=== PATIENT | male | born 1965 | race Caucasian/White ===

== ENCOUNTER 2019-04-26 03:20 | Observation (INO) | payer BC ==
[2019-04-26 03:58] LABS: ANION GAP 13.3; CHLORIDE,CL 104 mmol/L (101-111); SODIUM,NA 138 mmol/L (135-145)
--- NOTE | 2019-04-26 04:19 | EDM.PDOC ---
ED HPI GENERAL MEDICAL PROBLEM - General Chief Complaint: Cardiovascular Problem Stated Complaint: HEARTBEAT FEELS LIKE ITS SKIPPING Time Seen by Provider: 04/26/19 03:20 Source of Information: Reports: Patient, RN Notes Reviewed History Limitations: Reports: No Limitations - History of Present Illness INITIAL COMMENTS - FREE TEXT/NARRATIVE: ED with c/o feeling like heart skipping. States, woke felt "funny" felt pulse and irregular. No hx of similar events. Denies chest pain or SOB. Recent cold sx with congestion, Muccinex taken yesterday. non smoker. - Related Data Allergies Allergy/AdvReac Type Severity Reaction Status Date / Time No Known Allergies Allergy Verified 04/26/19 03:23 Home Meds: Home Meds . [No Known Home Meds] 04/26/19 [History] Past Medical History Cardiovascular History: Reports: High Cholesterol Social & Family History - Tobacco Use Smoking Status *Q: Never Smoker Second Hand Smoke Exposure: No - Recreational Drug Use Recreational Drug Use: No ED ROS GENERAL - Review of Systems Review Of Systems: Comprehensive ROS is negative, except as noted in HPI. ED EXAM, GENERAL - Physical Exam Exam: See Below Exam Limited By: No Limitations General Appearance: Alert, No Apparent Distress Eye Exam: Bilateral Eye: EOMI Ears: Normal External Exam, Hearing Grossly Normal Nose: Normal Inspection Throat/Mouth: Normal Inspection Head: Atraumatic, Normocephalic Neck: Normal Inspection, Full Range of Motion Respiratory/Chest: No Respiratory Distress, Lungs Clear, Normal Breath Sounds, No Accessory Muscle Use Cardiovascular: Normal Peripheral Pulses, Regular Rate, Rhythm, No Rub. No: JVD GI/Abdominal: Normal Bowel Sounds, Soft Back Exam: Full Range of Motion Extremities: Normal Inspection, Normal Range of Motion Neurological: Alert, Oriented, Normal Cognition Psychiatric: Normal Affect, Normal Mood Skin Exam: Warm, Dry, Intact, Normal Color Course - Vital Signs Last Recorded V/S: Last Vital Signs Temp 98.4 F 04/26/19 03:20 Pulse 72 04/26/19 03:20 Resp 18 04/26/19 03:20 BP 157/80 H 04/26/19 03:20 Pulse Ox 100 04/26/19 03:20 - Orders/Labs/Meds Orders: Active Orders 24 hr Category Date Time Status Admission Diagnosis [ADT] Stat ADT 04/26/19 05:08 Ordered Admission Status [Patient Status] [ADT] Routine ADT 04/26/19 05:08 Ordered Cardiac Monitoring [RC] . DIRECTED Care 04/26/19 05:08 Ordered EKG 12 Lead [EKG Documentation Completion] [RC] URGENT Care 04/26/19 03:28 Active Telemetry Monitoring [Cardiac Monitoring] [RC] . Care 04/26/19 05:11 Ordered DIRECTED Chest 1V Frontal [CR] Urgent Exams 04/26/19 03:33 Taken TROPONIN I [CHEM] Stat Lab 04/26/19 09:15 Ordered Labs: Laboratory Tests 04/26/19 04/26/19 Range/Units 03:35 03:35 WBC 9.7 (5.0-10.0) 10^3/uL RBC 4.44 L (4.6-6.2) 10^6/uL Hgb 13.3 L (14.0-18.0) g/dL Hct 38.8 L (40.0-54.0) % MCV 87.4 (80-100) fL MCH 30.0 (27.0-34.0) pg MCHC 34.3 (33.0-35.0) g/dL Plt Count 212 (150-450) 10^3/uL Neut % (Auto) 57.0 (42.2-75.2) % Lymph % (Auto) 31.6 (20.5-50.1) % [place] % (Auto) 9.2 H (2-8) % Eos % (Auto) 1.7 (1.0-3.0) % Baso % (Auto) 0.5 (0.0-1.0) % Sodium 138 (135-145) mmol/L Potassium 3.3 L (3.6-5.0) mmol/L Chloride 104 (101-111) mmol/L Carbon Dioxide 24.0 (21.0-31.0) mmol/L Anion Gap 13.3 BUN 17 (7-18) mg/dL Creatinine 0.8 (0.6-1.3) mg/dL Est Cr Clr Drug Dosing 115.04 mL/min Estimated GFR (MDRD) > 60 BUN/Creatinine Ratio 21.25 Glucose 95 (74-105) mg/dL Calcium 9.3 (8.4-10.2) mg/dl Total Bilirubin 0.6 (0.2-1.0) mg/dL AST 21 (10-42) IU/L ALT 19 (10-60) IU/L Alkaline Phosphatase 57 (42-121) IU/L Troponin I 0.03 H* (0.00-0.02) ng/ml Total Protein 7.3 (6.7-8.2) g/dl Albumin 3.9 (3.2-5.5) g/dl Globulin 3.4 Albumin/Globulin Ratio 1.15 Meds: Medications Discontinued Medications Generic Name Dose Route Start Last Admin Trade Name Freq PRN Reason Stop Dose Admin Potassium Chloride 20 meq 04/26/19 04:31 04/26/19 04:38 Klor-Con 10 PO 04/26/19 04:32 20 meq ONETIME ONE Administration - Radiology Interpretation Free Text/Narrative:: [facility] Final Radiology Report Call: [phone] assistance Online chat: [email or web address] Name: NEHEMIAS ACEVEDO Age: 53Years M Date: 04/26/2019 SSN: -- : [id number] Study: XR CHEST 1 VIEW FRONTAL Requesting Physician: ELIZABETH BALLESTEROS Images: 1 Addl Studies: Provided Clinical History: Contrast: Contrast Medium: Contrast Amount: Contrast Method: CONFIDENTIALITY STATEMENT This report is intended only for use by the referring physician, and only in accordance with law. If you received this in error, call [phone]. Page 1 of 1 PROCEDURE INFORMATION: Exam: XR Chest, 1 View Exam date and time: 04/26/2019 3:46 AM Age: 53 years old Clinical indication: Other: Feels like heart skipping beat TECHNIQUE: Imaging protocol: XR of the chest Views: 1 view. COMPARISON: No relevant prior studies available. FINDINGS: Lungs: Unremarkable. No consolidation. Pleural space: Unremarkable. No pleural effusion. No pneumothorax. Heart/Mediastinum: Unremarkable. No cardiomegaly. Bones/joints: Unremarkable. IMPRESSION: No acute findings. Thank you for allowing us to participate in the care of your patient. Dictated and Authenticated by: Mark Flowers MD 04/26/2019 4:07 AM Central Time ([place] & [place]) - Re-Assessments/Exams Free Text/Narrative Re-Assessment/Exam: 04/26/19 05:15 Dr Keshawn LOONEY Hospitalist accepting patient for observation admission Departure - Departure Time of Disposition: 05:15 Disposition: Refer to Observation Condition: Good Clinical Impression: Palpitations, Elevated troponin Forms: ED Department Discharge Sepsis Event Note - Evaluation Sepsis Screening Result: No Definite Risk - Focused Exam Vital Signs: Vital Signs Temp Pulse Resp BP Pulse Ox 04/26/19 03:20 98.4 F 72 18 157/80 H 100 Date Exam was Performed: 04/26/19 Time Exam was Performed: 05:14 - My Orders Last 24 Hours: My Active Orders 04/26/19 03:28 EKG 12 Lead [EKG Documentation Completion] [RC] URGENT 04/26/19 03:33 Chest 1V Frontal [CR] Urgent 04/26/19 05:08 Admission Diagnosis [ADT] Stat Admission Status [Patient Status] [ADT] Routine Cardiac Monitoring [RC] . DIRECTED 04/26/19 05:11 Telemetry Monitoring [Cardiac Monitoring] [RC] . DIRECTED 04/26/19 09:15 TROPONIN I [CHEM] Stat - Assessment/Plan Last 24 Hours: My Active Orders 04/26/19 03:28 EKG 12 Lead [EKG Documentation Completion] [RC] URGENT 04/26/19 03:33 Chest 1V Frontal [CR] Urgent 04/26/19 05:08 Admission Diagnosis [ADT] Stat Admission Status [Patient Status] [ADT] Routine Cardiac Monitoring [RC] . DIRECTED 04/26/19 05:11 Telemetry Monitoring [Cardiac Monitoring] [RC] . DIRECTED 04/26/19 09:15 TROPONIN I [CHEM] Stat
[2019-04-26] MEDS ORDERED: Potassium Chloride 10 MEQ Tab.ER PO ONE (04:31)
[2019-04-26] MEDS ORDERED: Lisinopril 5 MG Tab PO ONE (06:15)
--- NOTE | 2019-04-26 06:34 | PCM.HP ---
H&P History of Present Illness - General Date of Service: 04/26/19 Admit Problem/Dx: Admission Diagnosis/Problem Admission Diagnosis/Problem Palpitations Source of Information: Patient, Family - History of Present Illness Initial Comments - Free Text/Narative: Mr. Wu is a 56 y.o male with medical history significant for hyperlipidemia not on any medications, pyelonephritis, and recurrent tonsillitis who presented to the ED with complaints of skipped heart beats that woke him up around 3am. Reports that he could feel his heart skipping a beat every once in a while. Denies any prior episodes. Denies any associated chest pain, shortness of breath , neck pain, jaw pain, shoulder pain, arm pain, paresthesias, fevers, chills, vision changes, LH, spinning sensation, tinnitus, n/v/d/c, dysuria, hematuria, or any other symptoms. States he came to the ED because he was worried about the skipped beats. He denies any prior episodes of skipped beats and denies any prior cardiac problems including murmurs. Reports that he has been getting over a cold that started last week with rhinorrhea and cough with clear sputum production. Onset of Symptoms: Reports: Today - Related Data Allergies/Adverse Reactions: Allergies Allergy/AdvReac Type Severity Reaction Status Date / Time No Known Allergies Allergy Verified 04/26/19 05:36 Home Medications: Home Meds . [No Known Home Meds] 04/26/19 [History] Past Medical History Cardiovascular History: Reports: High Cholesterol Social & Family History - Family History Family Medical History: Noncontributory - Tobacco Use Smoking Status *Q: Never Smoker Second Hand Smoke Exposure: No - Caffeine Use Caffeine Use: Reports: None - Alcohol Use Days Per Week of Alcohol Use: 0 - Recreational Drug Use Recreational Drug Use: No H&P Review of Systems - Review of Systems: Review Of Systems: Comprehensive ROS is negative, except as noted in HPI. Exam - Exam Exam: See Below - Vital Signs Vital Signs: Last Vital Signs Temp 98.6 F 04/26/19 05:35 Pulse 61 04/26/19 05:35 Resp 18 04/26/19 05:35 BP 154/87 H 04/26/19 06:24 Pulse Ox 99 04/26/19 06:04 Weight: 161 lb - Exam Physical Exam Comments:: General: Alert and oriented to place, time and person. cooperative Head: atraumatic and normocephalic. Eyes: PERRLA, anicteric, Ear, Nose and Throat: No gross abnormality found Neck: Supple Respiratory/Chest: CTAB, no wheezes, crackles, rales, or rhonci; Good air entry bilaterally. unlabored. CVS: III/ murmur; RRR. No rub or gallop. Peripheral pulses palpable. Gastrointestinal/Abd: Soft, non-distended, non-tender. Normal bowel sounds. No organomegaly. Skin: No acute rashes noted. Neuro: Grossly non-focal. Moves all extremities. Psych: Alert and oriented to place time and person. No hallucinations or delusions noted. Musculoskeletal: No abnormality noted. Ext: No edema, no ulcers, no tenderness, no size differences, - Patient Data Lab Results Last 24 hrs: Laboratory Results - last 24 hr 04/26/19 04/26/19 Range/Units 03:35 03:35 WBC 9.7 (5.0-10.0) 10^3/uL RBC 4.44 L (4.6-6.2) 10^6/uL Hgb 13.3 L (14.0-18.0) g/dL Hct 38.8 L (40.0-54.0) % MCV 87.4 (80-100) fL MCH 30.0 (27.0-34.0) pg MCHC 34.3 (33.0-35.0) g/dL Plt Count 212 (150-450) 10^3/uL Neut % (Auto) 57.0 (42.2-75.2) % Lymph % (Auto) 31.6 (20.5-50.1) % [place] % (Auto) 9.2 H (2-8) % Eos % (Auto) 1.7 (1.0-3.0) % Baso % (Auto) 0.5 (0.0-1.0) % Sodium 138 (135-145) mmol/L Potassium 3.3 L (3.6-5.0) mmol/L Chloride 104 (101-111) mmol/L Carbon Dioxide 24.0 (21.0-31.0) mmol/L Anion Gap 13.3 BUN 17 (7-18) mg/dL Creatinine 0.8 (0.6-1.3) mg/dL Est Cr Clr Drug Dosing 115.04 mL/min Estimated GFR (MDRD) > 60 BUN/Creatinine Ratio 21.25 Glucose 95 (74-105) mg/dL Calcium 9.3 (8.4-10.2) mg/dl Total Bilirubin 0.6 (0.2-1.0) mg/dL AST 21 (10-42) IU/L ALT 19 (10-60) IU/L Alkaline Phosphatase 57 (42-121) IU/L Troponin I 0.03 H* (0.00-0.02) ng/ml Total Protein 7.3 (6.7-8.2) g/dl Albumin 3.9 (3.2-5.5) g/dl Globulin 3.4 Albumin/Globulin Ratio 1.15 Result Diagrams: 04/26/19 03:35 04/26/19 03:35 EKG INTERPRETATION EKG Date: 04/26/19 Comparison: NA - No Prior EKG EKG Interpretation Comments: Sinus rhythm with right axis deviation. HR of 74. No ST elevation or depression. No wave inversion. RA enlargement. QTc of 435 - Problem List (1) Hypokalemia SNOMED Code(s): 01950535 ICD Code: E87.6 - HYPOKALEMIA Status: Acute Current Visit: Yes (2) Cardiac murmur SNOMED Code(s): 29158379 ICD Code: R01.1 - CARDIAC MURMUR, UNSPECIFIED Status: Acute Current Visit : Yes (3) Hyperlipidemia SNOMED Code(s): 86149350 ICD Code: E78.5 - HYPERLIPIDEMIA, UNSPECIFIED Status: Acute Current Visit : Yes (4) Skipped heart beats SNOMED Code(s): 856999000 ICD Code: I45.9 - CONDUCTION DISORDER, UNSPECIFIED Status: Acute Current Visit: Yes (5) Elevated troponin SNOMED Code(s): 889736470, 672832408, 132880437 ICD Code: R79.89 - OTHER SPECIFIED ABNORMAL FINDINGS OF BLOOD CHEMISTRY Status: Acute Current Visit: No Problem List Initiated/Reviewed/Updated: Yes Orders Last 24hrs: Active Orders 24 hr Category Date Time Status Admission Diagnosis [ADT] Stat ADT 04/26/19 05:08 Ordered Admission Status [Patient Status] [ADT] Routine ADT 04/26/19 05:08 Active EKG 12 Lead [EKG Documentation Completion] [RC] URGENT Care 04/26/19 03:28 Active Height and Weight [RC] UPON Care 04/26/19 06:04 Ordered Intake and Output [RC] QSHIFT Care 04/26/19 06:05 Ordered Notify Provider Vital Signs [RC] ASDIRECTED Care 04/26/19 06:05 Ordered Oxygen Therapy [RC] PRN Care 04/26/19 06:04 Ordered Telemetry Monitoring [Cardiac Monitoring] [RC] 08 Care 04/26/19 05:11 Active Up ad Anni [RC] ASDIRECTED Care 04/26/19 06:04 Ordered VTE/DVT Education [RC] PER UNIT ROUTINE Care 04/26/19 06:04 Ordered Vital Signs [RC] Q4H Care 04/26/19 06:04 Ordered NPO Now [Nothing per Oral Now Diet] [DIET] Diet 04/26/19 Breakfast Ordered Chest 1V Frontal [CR] Urgent Exams 04/26/19 03:33 Taken Echo Comp wo Cont [US] Urgent Exams 04/26/19 06:09 Ordered BASIC METABOLIC PANEL,BMP [CHEM] AM Lab 04/27/19 05:11 Ordered GLYCOSYLATED HEMOGLOBIN (HA1C) [REF] Routine Lab 04/26/19 06:09 Ordered LIPID PANEL [REF] Routine Lab 04/26/19 06:09 Ordered MAGNESIUM [CHEM] AM Lab 04/27/19 05:11 Ordered PHOSPHORUS [CHEM] AM Lab 04/27/19 05:11 Ordered TROPONIN I [CHEM] Q6H Lab 04/26/19 09:30 Ordered TROPONIN I [CHEM] Q6H Lab 04/26/19 15:30 Ordered Aspirin Med 04/26/19 08:00 Ordered 81 mg PO WITHBREAKFAST atorvaSTATin [Lipitor] Med 04/26/19 21:00 Ordered 20 mg PO BEDTIME lisinopriL [Prinivil] Med 04/26/19 06:15 Ordered 5 mg PO DAILY Resuscitation Status Routine Resus Stat 04/26/19 06:04 Ordered Medication Orders Aspirin (Aspirin) 81 mg PO WITHBREAKFAST RENARD Atorvastatin Calcium (Lipitor) 20 mg PO BEDTIME RENARD Lisinopril (Prinivil) 5 mg PO DAILY [facility] Assessment/Plan Comment:: #Skipped heart beats: patient reports skipped heart beats. EKG shows no arrhythmias. Denies palpitations, racing heart beats, chest pain/pressure, jaw pain, neck pain, arm pain, paresthesia, LH, diaphoresis, n/v, or shortness of breath. - Tele monitoring. #Elevated troponin: Patient with troponin of 0.03. Could be due to cardiac strain or false positive from highly sensitive troponin. Only cardiac complaints is "skipped heart beats." He does have significant risk factors to include hyperlipidemia, male gender, and age of 53. - Tele monitoring. - Trend troponin and EKG - Check lipid panel and Hb A1c - Start ASA and lipitor - Echo - Will hold off on heparin drip for now. #New cardiac murmur: patient is 3/6 systolic murmur. - Echo #Hyperlipidemia: Patient with total cholesterol of 300 in 2016. - Not on any medication. - Start lipitor - Check lipid panel. Code status: Full GI ppx: NPO for now.
[2019-04-26] MEDS ORDERED: Aspirin 81 MG Tab.Chew PO SCH (08:00)
[2019-04-26] MEDS ORDERED: Heparin Sodium 5,000 Units/ML Vial IVPUSH ONE (10:57)
--- NOTE | 2019-04-26 10:57 | PCM.DCSUM1 ---
Discharge Summary - Hospital Course Free Text/Narrative:: Mr. Wu is a 56 y.o male with medical history significant for hyperlipidemia not on any medications, pyelonephritis, and recurrent tonsillitis who presented to the ED with complaints of skipped heart beats that woke him up around 3am. Reported that he could feel his heart skipping a beat every once in a while. Denied any prior episodes. Denied any associated chest pain, shortness of breath , neck pain, jaw pain, shoulder pain, arm pain, paresthesias, fevers, chills, vision changes, LH, spinning sensation, tinnitus, n/v/d/c, dysuria, hematuria, or any other symptoms. Troponin in the ED was 0.[address] elevation or depression. BP was elevated at 154/87. He was admitted for ACS rule out. His repeat troponin was 0.05. He was started on heparin drip and is being transferred to [facility], Dr. Vora is accepting physician. HPI Initial Comments: Mr. Wu is a 56 y.o male with medical history significant for hyperlipidemia not on any medications, pyelonephritis, and recurrent tonsillitis who presented to the ED with complaints of skipped heart beats that woke him up around 3am. Reports that he could feel his heart skipping a beat every once in a while. Denies any prior episodes. Denies any associated chest pain, shortness of breath , neck pain, jaw pain, shoulder pain, arm pain, paresthesias, fevers, chills, vision changes, LH, spinning sensation, tinnitus, n/v/d/c, dysuria, hematuria, or any other symptoms. States he came to the ED because he was worried about the skipped beats. He denies any prior episodes of skipped beats and denies any prior cardiac problems including murmurs. Reports that he has been getting over a cold that started last week with rhinorrhea and cough with clear sputum production. Diagnosis: Stroke: No - Discharge Data Discharge Date: 04/26/19 Discharge Disposition: DC/Tfer to Acute Hospital 02 Condition: Stable - Referral to Home Health Primary Care Physician: PCP Unobtainable - Discharge Diagnosis/Problem(s) (1) Hypokalemia SNOMED Code(s): 19908231 ICD Code: E87.6 - HYPOKALEMIA Status: Acute Current Visit: Yes (2) Cardiac murmur SNOMED Code(s): 26857439 ICD Code: R01.1 - CARDIAC MURMUR, UNSPECIFIED Status: Acute Current Visit : Yes (3) Hyperlipidemia SNOMED Code(s): 74374670 ICD Code: E78.5 - HYPERLIPIDEMIA, UNSPECIFIED Status: Acute Current Visit : Yes (4) Skipped heart beats SNOMED Code(s): 570740664 ICD Code: I45.9 - CONDUCTION DISORDER, UNSPECIFIED Status: Acute Current Visit: Yes (5) Elevated troponin SNOMED Code(s): 468170966, 585808493, 690584079 ICD Code: R79.89 - OTHER SPECIFIED ABNORMAL FINDINGS OF BLOOD CHEMISTRY Status: Acute Current Visit: No (6) NSTEMI (non-ST elevated myocardial infarction) SNOMED Code(s): 22118504 ICD Code: I21.4 - NON-ST ELEVATION (NSTEMI) MYOCARDIAL INFARCTION Status: Acute Current Visit: Yes (7) Hypertension SNOMED Code(s): 04227267 ICD Code: I10 - ESSENTIAL (PRIMARY) HYPERTENSION Status: Acute Current Visit: Yes - Discharge Plan *PRESCRIPTION DRUG MONITORING PROGRAM REVIEWED*: No *COPY OF PRESCRIPTION DRUG MONITORING REPORT IN PATIENT BALWINDER: No Home Medications: Home Meds Aspirin 81 mg PO WITHBREAKFAST tab.chew 04/26/19 [Rx] atorvaSTATin [Lipitor] 20 mg PO BEDTIME tablet 04/26/19 [Rx] lisinopriL [Prinivil] 5 mg PO DAILY tablet 04/26/19 [Rx] Forms: ED Department Discharge - Discharge Summary/Plan Comment DC Time >30 min.: Yes - General Info Date of Service: 04/26/19 Admission Dx/Problem (Free Text: Admission Diagnosis/Problem Admission Diagnosis/Problem Palpitations - Review of Systems General: Reports: No Symptoms HEENT: Reports: No Symptoms, Post Nasal Drip Pulmonary: Reports: No Symptoms Cardiovascular: Reports: Other (Skipped heart beats. ) Gastrointestinal: Reports: No Symptoms Genitourinary: Reports: No Symptoms Musculoskeletal: Reports: No Symptoms Skin: Reports: No Symptoms Neurological: Reports: No Symptoms Psychiatric: Reports: No Symptoms - Patient Data Vitals - Most Recent: Last Vital Signs Temp 99.6 F 04/26/19 10:44 Pulse 68 04/26/19 10:44 Resp 18 04/26/19 10:44 BP 117/66 04/26/19 10:44 Pulse Ox 97 04/26/19 10:44 Weight - Most Recent: 161 lb Lab Results - Last 24 hrs: Laboratory Results - last 24 hr 04/26/19 04/26/19 04/26/19 Range/Units 03:35 03:35 09:30 WBC 9.7 (5.0-10.0) 10^3/uL RBC 4.44 L (4.6-6.2) 10^6/uL Hgb 13.3 L (14.0-18.0) g/dL Hct 38.8 L (40.0-54.0) % MCV 87.4 (80-100) fL MCH 30.0 (27.0-34.0) pg MCHC 34.3 (33.0-35.0) g/dL Plt Count 212 (150-450) 10^3/uL Neut % (Auto) 57.0 (42.2-75.2) % Lymph % (Auto) 31.6 (20.5-50.1) % [place] % (Auto) 9.2 H (2-8) % Eos % (Auto) 1.7 (1.0-3.0) % Baso % (Auto) 0.5 (0.0-1.0) % Sodium 138 (135-145) mmol/L Potassium 3.3 L (3.6-5.0) mmol/L Chloride 104 (101-111) mmol/L Carbon Dioxide 24.0 (21.0-31.0) mmol/L Anion Gap 13.3 BUN 17 (7-18) mg/dL Creatinine 0.8 (0.6-1.3) mg/dL Est Cr Clr Drug Dosing 115.04 mL/min Estimated GFR (MDRD) > 60 BUN/Creatinine Ratio 21.25 Glucose 95 (74-105) mg/dL Calcium 9.3 (8.4-10.2) mg/dl Total Bilirubin 0.6 (0.2-1.0) mg/dL AST 21 (10-42) IU/L ALT 19 (10-60) IU/L Alkaline Phosphatase 57 (42-121) IU/L Troponin I 0.03 H* 0.05 H* (0.00-0.02) ng/ml Total Protein 7.3 (6.7-8.2) g/dl Albumin 3.9 (3.2-5.5) g/dl Globulin 3.4 Albumin/Globulin Ratio 1.15 Med Orders - Current: Current Medications Aspirin (Aspirin) 81 mg PO WITHBREAKFAST RENARD Last Admin: 04/26/19 08:32 Dose: 81 mg Atorvastatin Calcium (Lipitor) 20 mg PO BEDTIME RENARD Heparin Sodium/Sodium Chloride (Heparin 25,000 Units In 1/2 Ns 500 Ml) 25,000 units in 500 mls @ 17.527 mls/hr IV TITRATE RENARD; Protocol Lisinopril (Prinivil) 5 mg PO DAILY RENARD Discontinued Medications Lisinopril (Prinivil) 5 mg PO ONETIME ONE Stop: 04/26/19 06:16 Last Admin: 04/26/19 06:24 Dose: 5 mg Potassium Chloride (Klor-Con 10) 20 meq PO ONETIME ONE Stop: 04/26/19 04:32 Last Admin: 04/26/19 04:38 Dose: 20 meq - Exam General: Reports: Alert, Oriented HEENT: Reports: Pupils Equal, Pupils Reactive, Mucous Membr. Moist/[place] Neck: Reports: Supple Lungs: Reports: Clear to Auscultation, Normal Respiratory Effort Cardiovascular: Reports: Regular Rate, Regular Rhythm, Murmurs GI/Abdominal Exam: Normal Bowel Sounds, Soft, Non-Tender Extremities: Normal Inspection, Non-Tender, No Pedal Edema Skin: Reports: Warm, Dry, Intact Neurological: Reports: No New Focal Deficit Psy/Mental Status: Reports: Alert, Normal Affect, Normal Mood
[2019-04-26] MEDS ORDERED: Heparin Sodium/0.45% NaCl 25,000 UNITS/500 ML BAG IV SCH (11:00)
[2019-04-26 11:15] VITALS: BP 106/57; PULSE 70
[2019-04-26] MEDS ORDERED: atorvaSTATin 20 MG Tab PO SCH (21:00)
[2019-04-27] MEDS ORDERED: Lisinopril 5 MG Tab PO SCH (09:00)
== END 2019-04-26 11:28 ==
LOC: DL.ED 03:20 → DL.MS 05:08 → DL.ED 05:19
PROVIDERS: ADMIT Internal Medicine; ATTEND Internal Medicine
DX: I21.4 Non-ST elevation (NSTEMI) myocardial infarction (principal); I10 Essential (primary) hypertension; E87.6 Hypokalemia; E78.5 Hyperlipidemia, unspecified; E78.00 Pure hypercholesterolemia, unspecified; Z79.82 Long term (current) use of aspirin; Z79.899 Other long term (current) drug therapy
CPT/HCPCS: 36415; 71045; 80053; 80061; 83036; 84484; 85025; 93005; 99285; A9270; J1644; 96374; G0378

== ENCOUNTER 2020-03-03 03:09 | Emergency (ER) | payer BC ==
--- NOTE | 2020-03-03 03:19 | EDM.PDOC ---
ED HPI GENERAL MEDICAL PROBLEM - General Chief Complaint: Cardiovascular Problem Stated Complaint: CHEST PAIN Time Seen by Provider: 03/03/20 03:13 Source of Information: Reports: Patient, RN History Limitations: Reports: No Limitations - History of Present Illness INITIAL COMMENTS - FREE TEXT/NARRATIVE: ED per private vehicle with report of left sided chest pain 7/10 sharp waking from sleep. Has noticed pain worse when lying down. Increased SOB with activity past couple of weeks. No nausea, or sweating. no recent fever chills or cough. CoVID tested 2 weeks ago because did not feel right. Result negative. Took aspirin at home. does not take daily. No dizziness. Was transferred in April for palpations, Reports on monitor for 2 weeks Mid-Sternal Chest Pain Score (Numeric/FACES): 6 - Related Data Allergies Allergy/AdvReac Type Severity Reaction Status Date / Time No Known Allergies Allergy Verified 03/03/20 03:08 Home Meds: Home Meds Aspirin 81 mg PO WITHBREAKFAST tab.chew 04/26/19 [Rx] Rosuvastatin [Crestor] 10 mg PO DAILY 03/03/20 [History] Past Medical History Cardiovascular History: Reports: High Cholesterol - Past Surgical History Male Surgical History: Reports: Other (See Below) Other Male Surgeries/Procedures: bladder surgery Musculoskeletal Surgical History: Reports: Shoulder Surgery Other Musculoskeletal Surgeries/Procedures:: right shoulder Social & Family History - Family History Family Medical History: No Pertinent Family History - Caffeine Use Caffeine Use: Reports: None ED ROS GENERAL - Review of Systems Review Of Systems: Comprehensive ROS is negative, except as noted in HPI. ED EXAM, GENERAL - Physical Exam Exam: See Below Exam Limited By: No Limitations General Appearance: Alert, Moderate Distress Eye Exam: Bilateral Eye: PERRL Ears: Normal External Exam Nose: Normal Inspection Throat/Mouth: Normal Inspection Head: Atraumatic Neck: Normal Inspection Respiratory/Chest: No Respiratory Distress, Lungs Clear, Normal Breath Sounds Cardiovascular: Normal Peripheral Pulses, Regular Rate, Rhythm, Other (monitor sinus) Course - Vital Signs Last Recorded V/S: Last Vital Signs Temp 96.7 F L 03/03/20 04:05 Pulse 55 L 03/03/20 04:05 Resp 23 H 03/03/20 04:05 BP 124/69 03/03/20 04:05 Pulse Ox 100 03/03/20 04:05 - Orders/Labs/Meds Orders: Active Orders 24 hr Category Date Time Status Peripheral IV Insertion Adult [OM.PC] Stat Oth 03/03/20 03:01 Ordered Labs: Laboratory Tests 03/03/20 03/03/20 03/03/20 Range/Units 03:21 03:21 03:21 WBC 11.2 H (5.0-10.0) 10^3/uL RBC 4.43 L (4.6-6.2) 10^6/uL Hgb 13.5 L (14.0-18.0) g/dL Hct 39.2 L (40.0-54.0) % MCV 88.5 (80-100) fL MCH 30.5 (27.0-34.0) pg MCHC 34.4 (33.0-35.0) g/dL Plt Count 176 (150-450) 10^3/uL Neut % (Auto) 75.7 H (42.2-75.2) % Lymph % (Auto) 18.0 L (20.5-50.1) % [place] % (Auto) 5.8 (2-8) % Eos % (Auto) 0.3 L (1.0-3.0) % Baso % (Auto) 0.2 (0.0-1.0) % PT 10.3 (9.0-12.0) SEC INR 1.1 (0.9-1.2) APTT (22.0-34.0) SEC D-Dimer, Quantitative 194 (0-400) ng/mL Sodium 129 L (136-145) mmol/L Potassium 3.2 L (3.5-5.1) mmol/L Chloride 94 L (98-107) mmol/L Carbon Dioxide 24 (21-32) mmol/L Anion Gap 14.2 H (7-13) mEq/L BUN 13 (7-18) mg/dL Creatinine 1.18 (0.70-1.30) mg/dL Est Cr Clr Drug Dosing 75.43 mL/min Estimated GFR (MDRD) > 60 BUN/Creatinine Ratio 11.0 (No establ ref range) Glucose 192 H (74-99) mg/dL Calcium 9.1 (8.5-10.1) mg/dL Magnesium 1.6 L (1.8-2.4) mg/dL Total Bilirubin 0.5 (0.2-1.0) mg/dL AST 37 (15-37) U/L ALT 38 (16-63) U/L Alkaline Phosphatase 48 (46-116) U/L CK-MB (CK-2) (0.0-3.6) ng/mL Troponin I 2.211 H* (0.000-0.056) ng/mL B-Natriuretic Peptide 20 (0-100) pg/ml Total Protein 7.6 (6.4-8.2) g/dL Albumin 4.2 (3.4-5.0) g/dL Globulin 3.4 Albumin/Globulin Ratio 1.2 Amylase 45 (25-115) U/L SARS-CoV-2 RNA (KODI) (NEGATIVE) 03/03/20 03/03/20 03/03/20 Range/Units 03:21 03:21 03:30 WBC (5.0-10.0) 10^3/uL RBC (4.6-6.2) 10^6/uL Hgb (14.0-18.0) g/dL Hct (40.0-54.0) % MCV (80-100) fL MCH (27.0-34.0) pg MCHC (33.0-35.0) g/dL Plt Count (150-450) 10^3/uL Neut % (Auto) (42.2-75.2) % Lymph % (Auto) (20.5-50.1) % [place] % (Auto) (2-8) % Eos % (Auto) (1.0-3.0) % Baso % (Auto) (0.0-1.0) % PT (9.0-12.0) SEC INR (0.9-1.2) APTT 28.8 (22.0-34.0) SEC D-Dimer, Quantitative (0-400) ng/mL Sodium (136-145) mmol/L Potassium (3.5-5.1) mmol/L Chloride (98-107) mmol/L Carbon Dioxide (21-32) mmol/L Anion Gap (7-13) mEq/L BUN (7-18) mg/dL Creatinine (0.70-1.30) mg/dL Est Cr Clr Drug Dosing mL/min Estimated GFR (MDRD) BUN/Creatinine Ratio (No establ ref range) Glucose (74-99) mg/dL Calcium (8.5-10.1) mg/dL Magnesium (1.8-2.4) mg/dL Total Bilirubin (0.2-1.0) mg/dL AST (15-37) U/L ALT (16-63) U/L Alkaline Phosphatase (46-116) U/L CK-MB (CK-2) 14.6 H (0.0-3.6) ng/mL Troponin I (0.000-0.056) ng/mL B-Natriuretic Peptide (0-100) pg/ml Total Protein (6.4-8.2) g/dL Albumin (3.4-5.0) g/dL Globulin Albumin/Globulin Ratio Amylase (25-115) U/L SARS-CoV-2 RNA (KODI) Negative (NEGATIVE) Meds: Medications Discontinued Medications Generic Name Dose Route Start Last Admin Trade Name Freq PRN Reason Stop Dose Admin Aspirin 324 mg 03/03/20 03:05 03/03/20 03:26 Aspirin PO 03/03/20 03:06 Not Given ONETIME ONE Aspirin 324 mg 03/03/20 03:51 03/03/20 03:56 Aspirin PO 03/03/20 03:52 324 mg ONETIME ONE Administration Clopidogrel Bisulfate 300 mg 03/03/20 03:51 03/03/20 03:56 Plavix PO 03/03/20 03:52 300 mg ONETIME ONE Administration Heparin Sodium (Porcine) 4,000 units 03/03/20 03:52 03/03/20 03:58 Heparin Sodium IVPUSH 03/03/20 03:53 4,000 units .BOLUS ONE Administration Sodium Chloride 1,000 mls @ 25 mls/hr 03/03/20 03:20 03/03/20 03:27 Normal Saline IV 03/04/20 19:19 25 mls/hr .BOLUS ONE Administration Nitroglycerin/Dextrose 25 mg in 250 mls @ 6 mls/hr 03/03/20 03:45 03/03/20 04:03 Nitroglycerin 25 Mg/D5w 250 Ml IV 21.7 mcg/min TITRATE RENARD 13.02 mls/hr Infusion Protocol 10 MCG/MIN Heparin Sodium/Sodium Chloride 25,000 units in 500 mls @ 17.679 mls/hr 03/03/20 04:00 03/03/20 03:58 Heparin 25,000 Units In 1/2 Ns 500 Ml IV 12 units/kg/hr TITRATE RENARD 17.679 mls/hr Administration Protocol 12 UNITS/KG/HR Potassium Chloride 10 meq/ 100 mls @ 100 mls/hr 03/03/20 04:04 03/03/20 04:14 Premix IV 03/03/20 05:03 100 mls/hr ONETIME ONE Administration Nitroglycerin 0.4 mg 03/03/20 03:19 03/03/20 03:27 Nitrostat SL 03/03/20 03:20 0.4 mg ONETIME ONE Administration Nitroglycerin 0.4 mg 03/03/20 03:31 03/03/20 03:34 Nitrostat SL 03/03/20 03:32 0.4 mg ONETIME ONE Administration Sodium Chloride 10 ml 03/03/20 03:01 03/03/20 03:35 Saline Flush FLUSH 10 ml ASDIRECTED PRN Administration Keep Vein Open Tenecteplase 50 mg 03/03/20 03:47 03/03/20 03:53 Tnkase IV 03/03/20 03:48 40 mg ONETIME ONE Administration Protocol - Re-Assessments/Exams Free Text/Narrative Re-Assessment/Exam: 03/03/20 05:07 Initial EKG changed from previous. ST elevation anterior. Initial relief of chest pain with SL nitro from 6/10 decrease to 2/10. TC Dr Briceno accepting for tx. Recommend Aspirin Plavix 300mg, TNK, and Heparin . Unable to fly [place] due to weather. Tx LRAS. Brief bradycaria in 50's, diaphoretic pale, Fluid bolus due BP 70"s. No change in ELG. No ectopy noted. Slight improvment in pain to 4/10 at time of tx. Not as pale, skin dry. rate 60's sinus. BP improved. Departure - Departure Time of Disposition: 04:30 Disposition: DC/Tfer to Acute Hospital 02 Reason for Transfer *Q: Primary PCI Indicated Condition: Critical Clinical Impression: STEMI (ST elevation myocardial infarction) Qualifiers: Involved coronary artery: unspecified coronary artery Qualified Code(s): I21.3 - ST elevation (STEMI) myocardial infarction of unspecified site Referrals: Alvin Robles MD [Primary Care Provider] - Forms: ED Department Discharge Sepsis Event Note (ED) - Focused Exam Vital Signs: Vital Signs Temp Pulse Resp BP BP Pulse Ox 03/03/20 04:05 96.7 F L 55 L 23 H 124/69 100 03/03/20 03:34 151/89 H 03/03/20 03:27 175/88 H 03/03/20 03:20 98.1 F 80 17 169/92 H 100 - My Orders Last 24 Hours: My Active Orders 03/03/20 03:01 Peripheral IV Insertion Adult [OM.PC] Stat - Assessment/Plan Last 24 Hours: My Active Orders 03/03/20 03:01 Peripheral IV Insertion Adult [OM.PC] Stat
[2020-03-03] MEDS: Aspirin 81 MG Tab.Chew PO ONE ×2 (03:26→03:56)
[2020-03-03] MEDS: Sodium Chloride 0.9% 1,000 ML IV ONE (03:27)
[2020-03-03] MEDS: Nitroglycerin 0.4 MG Tab.SL SL ONE ×2 (03:27→03:34)
[2020-03-03] MEDS: Sodium Chloride 0.9% 10 ML Syringe FLUSH PRN (03:35)
[2020-03-03] MEDS: Nitroglycerin/D5W 25 MG/250 ML BOTTLE IV SCH (03:45)
[2020-03-03] MEDS: Tenecteplase 50 MG Kit IV ONE (03:53)
[2020-03-03] MEDS: Clopidogrel 75 MG Tab PO ONE (03:56)
[2020-03-03] MEDS: Heparin Sodium 5,000 Units/ML Vial IVPUSH ONE (03:58)
[2020-03-03] MEDS: Heparin Sodium/0.45% NaCl 25,000 UNITS/500 ML BAG IV SCH (03:58)
[2020-03-03 03:59] LABS: ANION GAP 14.2 mEq/L (7-13); CHLORIDE,CL 94 mmol/L (98-107); SODIUM,NA 129 mmol/L (136-145)
--- NOTE | 2020-03-03 04:03 | CR ---
PROCEDURE INFORMATION: Exam: XR Chest, 1 View Exam date and time: 03/03/2020 3:52 AM Age: 54 years old Clinical indication: Chest pain; Type not specified TECHNIQUE: Imaging protocol: XR of the chest Views: 1 view. COMPARISON: CR Chest 1V Frontal 04/26/2019 3:46 AM FINDINGS: Lungs: Unremarkable. No consolidation. Pleural space: Unremarkable. No pleural effusion. No pneumothorax. Heart/Mediastinum: Unremarkable. No cardiomegaly. Bones/joints: Unremarkable. IMPRESSION: No acute findings.
[2020-03-03 04:07] VITALS: BP 124/69; PULSE 55
[2020-03-03] MEDS: Potassium Chloride 10 MEQ in Premix Bag 1 BAG IV ONE (04:14)
== END 2020-03-03 04:22 ==
LOC: DL.ED 03:09
DX: I21.3 ST elevation (STEMI) myocardial infarction of unspecified site (principal); E78.00 Pure hypercholesterolemia, unspecified; Z79.82 Long term (current) use of aspirin; Z79.899 Other long term (current) drug therapy; Z20.828 Contact with and (suspected) exposure to other viral communicable diseases
CPT/HCPCS: 36415; 71045; 80053; 82150; 82553; 83735; 83880; 84484; 85025; 85379; 85610; 85730; 87635; 93005; 96365; 96368; 96375; 99285; A9270; J1644; J3101; J3480; J3490; J7030; U0002

== ENCOUNTER 2020-12-01 00:44 | Emergency (ER) | payer BC ==
--- NOTE | 2020-12-01 00:50 | EDM.PDOC ---
ED HPI GENERAL MEDICAL PROBLEM - General Stated Complaint: CHEST PAIN Time Seen by Provider: 12/01/20 00:44 Source of Information: Reports: Patient, Old Records, RN, RN Notes Reviewed History Limitations: Reports: No Limitations - History of Present Illness INITIAL COMMENTS - FREE TEXT/NARRATIVE: Nehemias is a 55 y/o male with a history of STEMI who presents to the ED via personal vehicle with complaints of chest pain. The patient reports the pain woke him from sleep immediately before his arrival to this facility. He characterizes the pain as sharp to his left inferior chest; it does not radiate. He has taken one dose of Nitro SL prior to arrival which did reduce his pain from a 6/10 to a current 4/10. He denies recent illness, fever, shaking chills, cough, sore throat, dyspepsia, abdominal pain, or nausea. He is currently taking daily ASA, clopidogrel, ezetimibe, and atorvastatin and he has not missed doses. He denies a history of tobacco, alcohol, or recreational drug use. - Related Data Allergies Allergy/AdvReac Type Severity Reaction Status Date / Time No Known Allergies Allergy Verified 03/03/20 03:08 Home Meds: Home Meds Aspirin 81 mg PO WITHBREAKFAST tab.chew 04/26/19 [Rx] Acetaminophen 325 mg PO ASDIRECTED PRN 03/17/20 [History] Clopidogrel [Plavix] 75 mg PO DAILY 03/17/20 [History] Metoclopramide HCl [Reglan] 10 mg PO TID PRN 03/17/20 [History] Metoprolol Tartrate 25 mg PO BID 03/17/20 [History] atorvaSTATin Calcium [Atorvastatin Calcium] 80 mg PO BEDTIME 03/17/20 [History] Past Medical History Cardiovascular History: Reports: High Cholesterol, DC - Past Surgical History Male Surgical History: Reports: Other (See Below) Other Male Surgeries/Procedures: bladder surgery Musculoskeletal Surgical History: Reports: Shoulder Surgery Other Musculoskeletal Surgeries/Procedures:: right shoulder Social & Family History - Family History Family Medical History: No Pertinent Family History - Caffeine Use Caffeine Use: Reports: Coffee ED ROS GENERAL - Review of Systems Review Of Systems: Comprehensive ROS is negative, except as noted in HPI. ED EXAM, GENERAL - Physical Exam Exam: See Below Exam Limited By: No Limitations General Appearance: Alert, Anxious Eye Exam: Bilateral Eye: EOMI, Normal Inspection, PERRL (3mm) Ears: Normal External Exam, Hearing Grossly Normal Nose: Normal Inspection, Normal Mucosa, No Blood Throat/Mouth: Normal Inspection, Normal Oropharynx, Normal Voice, No Airway Compromise Head: Atraumatic, Normocephalic Neck: Normal Inspection, Supple, Non-Tender, Full Range of Motion. No: Lymphadenopathy (L), Lymphadenopathy (R) Respiratory/Chest: No Respiratory Distress, Lungs Clear, Normal Breath Sounds, No Accessory Muscle Use, Chest Non-Tender Cardiovascular: Normal Peripheral Pulses, Regular Rate, Rhythm, No Edema, No Gallop, No JVD, No Murmur, No Rub, Bradycardia Peripheral Pulses: 2+: Radial (L), Radial (R) GI/Abdominal: Normal Bowel Sounds, Soft, Non-Tender, No Distention, No Abnormal Bruit, No Mass, Pelvis Stable (Male) Exam: Deferred Rectal (Males) Exam: Deferred Back Exam: Normal Inspection, Full Range of Motion Extremities: Normal Inspection, Normal Range of Motion, Non-Tender, No Pedal Edema, Normal Capillary Refill Neurological: Alert, Oriented, CN II-XII Intact, Normal Cognition, Normal Gait, No Motor/Sensory Deficits Psychiatric: Normal Affect, Normal Mood Skin Exam: Warm, Dry, Intact, Normal Color, No Rash. No: Cyanosis, Jaundice, Mottled, Pallor #1 Interpretation EKG Date: 12/01/20 Time: 00:46 Rhythm: Other (Sinus bradycardia) Rate (Beats/Min): 59 [place]: Normal P-Wave: Present QRS: Normal ST-T: Normal QT: Normal WA/PQ Interval: 0.196 Comparison: Change From Previous EKG (Compared to 03-03-21) EKG Interpretation Comments: SB; No evidence of acute myocardial ischemia #2 Interpretation EKG Date: 12/01/20 Time: 05:00 Rhythm: Other (Sinus bradycardia) Rate (Beats/Min): 51 [place]: Normal P-Wave: Present QRS: Normal ST-T: Normal QT: Normal WA/PQ Interval: 0.194 Comparison: No Change EKG Interpretation Comments: SB; No evidence of acute myocardial ischemia Course - Vital Signs Last Recorded V/S: Last Vital Signs Temp Pulse 56 L 12/01/20 01:01 Resp 20 12/01/20 01:01 BP 129/82 12/01/20 01:11 Pulse Ox 94 L 12/01/20 01:01 - Orders/Labs/Meds Labs: Laboratory Tests 12/01/20 12/01/20 12/01/20 Range/Units 00:51 00:51 00:51 WBC 7.8 (5.0-10.0) 10^3/uL RBC 4.45 L (4.6-6.2) 10^6/uL Hgb 13.7 L (14.0-18.0) g/dL Hct 39.7 L (40.0-54.0) % MCV 89.2 (80-100) fL MCH 30.8 (27.0-34.0) pg MCHC 34.5 (33.0-35.0) g/dL Plt Count 199 (150-450) 10^3/uL Neut % (Auto) 44.6 (42.2-75.2) % Lymph % (Auto) 43.8 (20.5-50.1) % [place] % (Auto) 9.3 H (2-8) % Eos % (Auto) 1.8 (1.0-3.0) % Baso % (Auto) 0.5 (0.0-1.0) % PT 10.5 (9.0-12.0) SEC INR 1.0 (0.9-1.2) APTT 28.3 (22.0-34.0) SEC Sodium 138 (136-145) mmol/L Potassium 3.7 (3.5-5.1) mmol/L Chloride 102 (98-107) mmol/L Carbon Dioxide 23 (21-32) mmol/L Anion Gap 16.7 H (7-13) mEq/L BUN 14 (7-18) mg/dL Creatinine 1.02 (0.70-1.30) mg/dL Est Cr Clr Drug Dosing TNP Estimated GFR (MDRD) > 60 BUN/Creatinine Ratio 13.7 (No establ ref range) Glucose 120 H (70-99) mg/dL Lactic Acid (0.4-2.0) mmol/L Calcium 9.4 (8.5-10.1) mg/dL Total Bilirubin 0.5 (0.2-1.0) mg/dL AST 37 (15-37) U/L ALT 58 (16-63) U/L Alkaline Phosphatase 47 (46-116) U/L Troponin I High Sens 8 (<=76) pg/mL C-Reactive Protein < 0.2 (0.0-0.9) mg/dL B-Natriuretic Peptide < 5 (0-100) pg/ml Total Protein 7.3 (6.4-8.2) g/dL Albumin 3.7 (3.4-5.0) g/dL Globulin 3.6 Albumin/Globulin Ratio 1.0 Amylase 54 (25-115) U/L Lipase 254 (73-393) U/L 12/01/20 12/01/20 Range/Units 00:51 04:59 WBC (5.0-10.0) 10^3/uL RBC (4.6-6.2) 10^6/uL Hgb (14.0-18.0) g/dL Hct (40.0-54.0) % MCV (80-100) fL MCH (27.0-34.0) pg MCHC (33.0-35.0) g/dL Plt Count (150-450) 10^3/uL Neut % (Auto) (42.2-75.2) % Lymph % (Auto) (20.5-50.1) % [place] % (Auto) (2-8) % Eos % (Auto) (1.0-3.0) % Baso % (Auto) (0.0-1.0) % PT (9.0-12.0) SEC INR (0.9-1.2) APTT (22.0-34.0) SEC Sodium (136-145) mmol/L Potassium (3.5-5.1) mmol/L Chloride (98-107) mmol/L Carbon Dioxide (21-32) mmol/L Anion Gap (7-13) mEq/L BUN (7-18) mg/dL Creatinine (0.70-1.30) mg/dL Est Cr Clr Drug Dosing Estimated GFR (MDRD) BUN/Creatinine Ratio (No establ ref range) Glucose (70-99) mg/dL Lactic Acid 1.1 (0.4-2.0) mmol/L Calcium (8.5-10.1) mg/dL Total Bilirubin (0.2-1.0) mg/dL AST (15-37) U/L ALT (16-63) U/L Alkaline Phosphatase (46-116) U/L Troponin I High Sens 8 (<=76) pg/mL C-Reactive Protein (0.0-0.9) mg/dL B-Natriuretic Peptide (0-100) pg/ml Total Protein (6.4-8.2) g/dL Albumin (3.4-5.0) g/dL Globulin Albumin/Globulin Ratio Amylase (25-115) U/L Lipase (73-393) U/L Meds: Medications Discontinued Medications Generic Name Dose Route Start Last Admin Trade Name Freq PRN Reason Stop Dose Admin Al Hydroxide/Mg Hydroxide 30 ml 12/01/20 01:41 12/01/20 01:50 Gi Cocktail Oral Solution 30 Ml PO 12/01/20 01:42 30 ml ONETIME ONE Administration Aspirin 324 mg 12/01/20 01:05 12/01/20 01:10 Aspirin 81 Mg Tab.Chew PO 12/01/20 01:06 324 mg ONETIME ONE Administration Morphine Sulfate 2 mg 12/01/20 02:24 12/01/20 02:53 Morphine 2 Mg/Ml Syringe IVPUSH 12/01/20 02:25 2 mg ONETIME ONE Administration Nitroglycerin 0.4 mg 12/01/20 01:05 12/01/20 01:11 Nitroglycerin 0.4 Mg Tab.Sl SL 12/01/20 01:06 0.4 mg ONETIME ONE Administration - Radiology Interpretation Free Text/Narrative:: [facility] Final Radiology Report Call: [phone] assistance Online chat: [email or web address] Name: NEHEMIAS ACEVEDO Age: 55Years M Date: 12/01/2020 SSN: -- : [id number] Study: CR CHEST 1V FRONTAL Requesting Physician: Monika Cain Images: 1 Addl Studies: Provided Clinical History: Chest pain Contrast: Contrast Medium: Contrast Amount: Contrast Method: CONFIDENTIALITY STATEMENT This report is intended only for use by the referring physician, and only in accordance with law. If you received this in error, call [phone]. Page 1 of 1 PROCEDURE INFORMATION: Exam: XR Chest Exam date and time: 12/01/2020 2:49 AM Age: 55 years old Clinical indication: Other: Chest pain TECHNIQUE: Imaging protocol: XR of the chest. Views: 1 view. COMPARISON: CR Chest 1V Frontal 03/03/2020 3:52 AM FINDINGS: Tubes, catheters and devices: Cardiac lead wires are noted. Lungs: Unremarkable. No consolidation. Pleural spaces: Unremarkable. No pleural effusion. No pneumothorax. Heart/Mediastinum: Unremarkable. No cardiomegaly. Bones/joints: Unremarkable. IMPRESSION: No acute change is identified. Thank you for allowing us to participate in the care of your patient. Dictated and Authenticated by: Piyush Corey MD 12/01/2020 4:30 AM Central Time ([place] & [place]) - Re-Assessments/Exams Free Text/Narrative Re-Assessment/Exam: 12/01/20 ASA 325mg chewed while EKG performed and labs drawn. Additional Nitro SL given. EKG reveals SB, Troponin WNL. Given abrupt onset of pain, will trend troponin. Findings of examination, imaging, and lab work reviewed with patient. Patient verbalized understanding and agreement with the plan of care. Patient continues to rate pain at 4, will trial GI cocktail. Repeat troponin WNL. EKG remains SB without evidence of acute DC. Findings of lab work reviewed with patient. Discussed supportive cares, as well as red flag signs and symptoms which would warrant immediate reevaluation. Patient verbalized understanding and agreement with the plan of care. Departure - Departure Time of Disposition: 05:42 Disposition: Home, Self-Care 01 Condition: Good Clinical Impression: Atypical chest pain Instructions: Nonspecific Chest Pain, Adult Referrals: PCP,None [Primary Care Provider] - Forms: ED Department Discharge Additional Instructions: 1.) Follow up with your primary care provider in 1-2 days regarding today's visit. 2.) You may take ibuprofen (Motrin/Advil) 400mg every six hours, as pain and swelling persist. You may also take acetaminophen (Tylenol) 650mg every six hours, as pain persists. You may stagger these medications so you are taking a dose every three hours. 3.) Return to the emergency department with any persistent or worsening symptoms despite medications.
[2020-12-01 01:03] VITALS: BP 129/82; PULSE 56
[2020-12-01] MEDS ORDERED: Aspirin 81 MG Tab.Chew PO ONE (01:05)
[2020-12-01] MEDS ORDERED: Nitroglycerin 0.4 MG Tab.SL SL ONE (01:05)
[2020-12-01 01:28] LABS: ANION GAP 16.7 mEq/L (7-13); CHLORIDE,CL 102 mmol/L (98-107); SODIUM,NA 138 mmol/L (136-145)
[2020-12-01 01:29] LABS: PTT,PARTIAL THROMBOPLSTIN TIME 28.3 SEC (22.0-34.0)
[2020-12-01] MEDS ORDERED: GI Cocktail Oral Solution 30 ML PO ONE (01:41)
[2020-12-01] MEDS ORDERED: Morphine 2 MG/ML SYRINGE IVPUSH ONE (02:24)
--- NOTE | 2020-12-01 04:30 | CR ---
PROCEDURE INFORMATION: Exam: XR Chest Exam date and time: 12/01/2020 2:49 AM Age: 55 years old Clinical indication: Other: Chest pain TECHNIQUE: Imaging protocol: XR of the chest. Views: 1 view. COMPARISON: CR Chest 1V Frontal 03/03/2020 3:52 AM FINDINGS: Tubes, catheters and devices: Cardiac lead wires are noted. Lungs: Unremarkable. No consolidation. Pleural spaces: Unremarkable. No pleural effusion. No pneumothorax. Heart/Mediastinum: Unremarkable. No cardiomegaly. Bones/joints: Unremarkable. IMPRESSION: No acute change is identified.
== END 2020-12-01 05:59 | disposition home or self-care (01) ==
LOC: DL.ED 00:44
DX: R07.89 Other chest pain (principal); E78.00 Pure hypercholesterolemia, unspecified; I25.2 Old myocardial infarction; Z79.82 Long term (current) use of aspirin; Z79.02 Long term (current) use of antithrombotics/antiplatelets; Z79.899 Other long term (current) drug therapy
CPT/HCPCS: 36415; 71045; 80053; 82150; 83605; 83690; 83880; 84484; 85025; 85610; 85730; 86140; 93005; 96374; 99285; A9270; J2270

== ENCOUNTER 2021-04-07 21:00 | Emergency (ER) | payer BC ==
[2021-04-07] MEDS ORDERED: ceFAZolin 1 GM in Sodium Chloride 0.9% 50 ML IV ONE (21:43)
[2021-04-07] MEDS ORDERED: Acetaminophen/HYDROcodone 325-10 MG Tab PO ONE (22:09)
[2021-04-07] MEDS ORDERED: Amoxicillin/Clavulanate K 400-57 MG/5 ML Susp 100 ML Bottle PO ONE (22:32)
[2021-04-07 22:44] VITALS: BP 161/111; PULSE 63
== END 2021-04-07 22:40 | disposition home or self-care (01) ==
LOC: DL.ED 21:00
DX: S62.522B Displaced fracture of distal phalanx of left thumb, initial encounter for open fracture (principal); E78.00 Pure hypercholesterolemia, unspecified; I25.2 Old myocardial infarction; Z79.82 Long term (current) use of aspirin; Z79.899 Other long term (current) drug therapy; Z79.02 Long term (current) use of antithrombotics/antiplatelets; W26.8XXA Contact with other sharp object(s), not elsewhere classified, initial encounter
CPT/HCPCS: 73140-FA; 96365; 99283-25; A9270-GY; J0690

== ENCOUNTER 2021-07-18 19:00 | Emergency (ER) | payer BC ==
[2021-07-18 20:06] LABS: CORONAVIRUS COVID-19 NAA NEGATIVE (NEGATIVE)
[2021-07-18 21:40] VITALS: PULSE 62
[2021-07-18 22:06] LABS: ANION GAP 13.1 mEq/L (7-13); CHLORIDE,CL 103 mmol/L (98-107); SODIUM,NA 139 mmol/L (136-145)
[2021-07-18 23:00] VITALS: BP 111/66
== END 2021-07-18 22:50 | disposition home or self-care (01) ==
LOC: DL.ED 19:00
DX: R53.81 Other malaise (principal); R06.02 Shortness of breath; I25.2 Old myocardial infarction; E78.00 Pure hypercholesterolemia, unspecified; Z79.899 Other long term (current) drug therapy; Z79.82 Long term (current) use of aspirin
CPT/HCPCS: 0240U; 36415; 71045; 80053; 81003; 83605; 84443; 84484; 85025; 93005; 93010; 99283; 99285-25

== ENCOUNTER 2021-12-27 20:29 | Emergency (ER) | payer BC ==
[2021-12-27] MEDS ORDERED: Acetaminophen/HYDROcodone 325-10 MG Tab PO ONE (20:30)
[2021-12-27 21:13] VITALS: BP 120/80; PULSE 68
[2021-12-27 22:11] LABS: ANION GAP 9.4 mEq/L (7-13)
[2021-12-27] MEDS ORDERED: Acetaminophen/HYDROcodone 325-10 MG Tab ONE (23:43)
== END 2021-12-28 00:01 | disposition home or self-care (01) ==
LOC: DL.ED 20:29
DX: S70.12XA Contusion of left thigh, initial encounter (principal); E78.00 Pure hypercholesterolemia, unspecified; I25.2 Old myocardial infarction; Z79.899 Other long term (current) drug therapy; Z79.82 Long term (current) use of aspirin; Z86.16 Personal history of COVID-19; W22.8XXA Striking against or struck by other objects, initial encounter
CPT/HCPCS: 36415; 73701; 80053; 85025; 85610; 99283; A9270

== ENCOUNTER 2023-05-20 19:00 | Emergency (ER) | payer BC ==
[2023-05-20 19:19] VITALS: BP 112/68; PULSE 69
== END 2023-05-20 19:39 | disposition home or self-care (01) ==
LOC: DL.ED 19:00
DX: J06.9 Acute upper respiratory infection, unspecified (principal); I25.10 Atherosclerotic heart disease of native coronary artery without angina pectoris; E78.00 Pure hypercholesterolemia, unspecified; I25.2 Old myocardial infarction; Z79.82 Long term (current) use of aspirin; Z95.5 Presence of coronary angioplasty implant and graft; Z86.19 Personal history of other infectious and parasitic diseases; Z86.16 Personal history of COVID-19; Z79.899 Other long term (current) drug therapy
CPT/HCPCS: 99283